=== PATIENT | male | born 2000 | race Caucasian/White ===

== ENCOUNTER 2019-11-05 16:09 | Inpatient (IN) | payer BC ==
[~2019-11-05] VITALS: Ht 182.9 cm; Wt 66.0 kg
[2019-11-05] MEDS ORDERED: LORAZEPAM 2MG/ML CPJ IM ONE (16:45)
[2019-11-05] MEDS ORDERED: DIPHENHYDRAMINE 50MG/ML VIAL IM ONE (17:15)
[2019-11-05 17:42] LABS: CHLORIDE 106 mEq/L (98-107)
[2019-11-05 17:46] LABS: ETHANOL BLOOD < 10 mg/dL
[2019-11-05 17:51] LABS: HEMATOCRIT. 46.8 % (42.0-52.0); HEMOGLOBIN. 15.9 g/dL (14.0-18.0); MEAN CORPUSCULAR HEMOGLOBIN 31.9 pg (28.0-32.0); MEAN CORPUSCULAR VOLUME 93.9 fL (80.0-94.0); MEAN PLATELET VOLUME 8.2 fl (7.4-10.4); PLATELET 401 x1000/uL (130-400); RED BLOOD CELL COUNT 4.99 mill/uL (4.7-6.1); RED CELL DISTRIBUTION WIDTH 12.2 % (11.6-14.6)
[2019-11-05] MEDS ORDERED: HALOPERIDOL LACTATE 5MG/ML VIAL IM STA (18:09)
[2019-11-05 18:41] LABS: CLARITY URINE CLEAR (CLEAR); COLOR URINE YELLOW (YELLOW); KETONES URINE 1+ (NEGATIVE); LEUKOCYTE ESTERASE URINE TRACE (NEGATIVE); NITRITE URINE NEGATIVE (NEGATIVE); OCCULT BLOOD URINE NEGATIVE (NEGATIVE); PH URINE 5.5 (4.5-8.0); PROTEIN URINE 1+ (NEGATIVE); SPECIFIC GRAVITY URINE 1.023 (1.005-1.030)
[2019-11-05 19:02] LABS: PLATELET ESTIMATE NORMAL
[2019-11-05 19:03] LABS: CANNABINOID URINE SCREEN PRESUMTIVE POSITIVE (NEGATIVE); METHADONE URINE SCREEN NEGATIVE (NEGATIVE); OPIATES URINE SCREEN NEGATIVE (NEGATIVE); PHENCYCLIDINE URINE SCREEN NEGATIVE (NEGATIVE)
[2019-11-05 19:04] LABS: *AMPHETAMINES SCREEN URINE NEGATIVE (NEGATIVE); *BARBITURATES SCREEN URINE PRESUMTIVE POSITIVE (NEGATIVE); *BENZODIAZEPINES SCREEN URINE PRESUMTIVE POSITIVE (NEGATIVE); *COCAINE SCREEN URINE NEGATIVE (NEGATIVE)
[2019-11-05] MEDS ORDERED: OLANZAPINE 10 MG/VIAL IM ONE ×2 (20:45→23:45)
[2019-11-05] MEDS ORDERED: HALOPERIDOL LACTATE 5MG/ML VIAL IM ONE (21:45)
[2019-11-06] MEDS ORDERED: HALOPERIDOL LACTATE 5MG/ML VIAL IM ONE ×2 (04:30→12:00)
[2019-11-06] MEDS ORDERED: OLANZAPINE 10 MG/VIAL IM STA (08:44)
[2019-11-06] MEDS ORDERED: LORAZEPAM 2MG/ML CPJ IM ONE ×2 (08:45→12:00)
[2019-11-06] MEDS ORDERED: LORAZEPAM 2MG/ML CPJ IV ONE ×2 (10:45→19:00)
[2019-11-06] MEDS ORDERED: LORAZEPAM 2MG/ML CPJ IM STA (11:12)
[2019-11-06] MEDS ORDERED: SODIUM CHLORIDE 0.9% 1,000 ML IV ONE ×3 (11:46→18:30)
[2019-11-06] MEDS ORDERED: DIPHENHYDRAMINE 50MG/ML VIAL IM ONE (12:00)
[2019-11-06 13:56] LABS: HEMATOCRIT. 49.4 % (42.0-52.0); HEMOGLOBIN. 16.9 g/dL (14.0-18.0); MEAN CORPUSCULAR HEMOGLOBIN 31.7 pg (28.0-32.0); MEAN PLATELET VOLUME 8.1 fl (7.4-10.4); PLATELET 389 x1000/uL (130-400); RED BLOOD CELL COUNT 5.32 mill/uL (4.7-6.1); RED CELL DISTRIBUTION WIDTH 12.6 % (11.6-14.6)
[2019-11-06 13:57] LABS: CHLORIDE 109 mEq/L (98-107)
[2019-11-06 14:22] LABS: PLATELET ESTIMATE NORMAL
[2019-11-06 15:07] LABS: CREATINE KINASE 32857 IU/L (39-308)
[2019-11-06] MEDS ORDERED: NITROGLYCERIN 0.4MG TABLET SL SL PRN (19:15)
[2019-11-06] MEDS ORDERED: GUAIFENESIN 200MG/10ML SUGAR FREE UDC PO PRN (19:15)
[2019-11-06] MEDS ORDERED: HALOPERIDOL LACTATE 5MG/ML VIAL IM PRN (19:15)
[2019-11-06] MEDS ORDERED: DIPHENHYDRAMINE 50MG/ML VIAL IV PRN (19:15)
[2019-11-06] MEDS ORDERED: IPRATROPIUM/ALBUTEROL 0.5-3(2.5)MG/3ML NEB ORI PRN (19:15)
[2019-11-06] MEDS ORDERED: CLONIDINE 0.1MG TABLET PO PRN (19:15)
[2019-11-06] MEDS ORDERED: MAGNESIUM/ALUMINUM HYDROXIDE/SIMETHICONE 30ML UDC PO PRN (19:15)
[2019-11-06] MEDS ORDERED: ONDANSETRON HCL 4MG/2ML INJ IV PRN (19:15)
[2019-11-06] MEDS ORDERED: DOCUSATE SODIUM 100MG CAPSULE PO PRN (19:15)
[2019-11-06] MEDS ORDERED: LORAZEPAM 2MG/ML CPJ IV PRN (19:15)
[2019-11-06] MEDS ORDERED: ACETAMINOPHEN 325MG TABLET PO PRN ×2 (19:15)
[2019-11-06] MEDS ORDERED: KETOROLAC 15MG/ML VIAL IV PRN (19:15)
[2019-11-07] MEDS ORDERED: NICOTINE 14MG PATCH TD ONE (04:30)
[2019-11-07 06:24] LABS: BASOPHILS % 0.3 % (0.0-2.0); HEMATOCRIT. 41.3 % (42.0-52.0); HEMOGLOBIN. 14.1 g/dL (14.0-18.0); LYMPHOCYTES % 7.7 % (20.0-50.0); MEAN CORPUSCULAR HEMOGLOBIN 31.9 pg (28.0-32.0); MEAN CORPUSCULAR VOLUME 93.5 fL (80.0-94.0); MEAN PLATELET VOLUME 7.9 fl (7.4-10.4); MONOCYTES % 9.5 % (2.0-8.0); NEUTROPHILS % 82.5 % (40.0-76.0); PLATELET 333 x1000/uL (130-400); RED BLOOD CELL COUNT 4.41 mill/uL (4.7-6.1); RED CELL DISTRIBUTION WIDTH 12.5 % (11.6-14.6)
[2019-11-07 06:25] LABS: CHLORIDE 111 mEq/L (98-107)
[2019-11-07 06:32] LABS: PHOSPHORUS 2.9 mg/dL (2.5-4.9)
[2019-11-07 07:25] LABS: CREATINE KINASE > 51000 IU/L (39-308)
[2019-11-07] MEDS ORDERED: SODIUM BICARBONATE 8.4% 1 MEQ/ML 50ML SYR IV ONE (07:45)
[2019-11-07] MEDS: OLANZAPINE 10MG TABLET PO SCH ×2 (08:17→09:40)
[2019-11-07] MEDS: FAMOTIDINE 20MG TABLET PO SCH (09:40)
[2019-11-07] MEDS: CITRIC ACID/SODIUM CITRATE SOLN 15ML UDC PO SCH ×3 (09:40→17:10)
[2019-11-07] MEDS: SODIUM CHLORIDE 0.9% 1,000 ML IV SCH (10:36)
[2019-11-07 11:30] VITALS: BP 148/73
[2019-11-07 12:47] VITALS: BP 148/73
[2019-11-07 16:00] VITALS: BP 136/79
[2019-11-07 20:00] VITALS: BP 132/59
[2019-11-08] MEDS: FAMOTIDINE 20MG TABLET PO SCH ×3 (00:35→21:02)
[2019-11-08] MEDS: OLANZAPINE 10MG TABLET PO SCH ×3 (00:36→21:02)
[2019-11-08 04:00] VITALS: BP 123/73
[2019-11-08] MEDS: CITRIC ACID/SODIUM CITRATE SOLN 15ML UDC PO SCH ×3 (09:03→17:37)
[2019-11-08 10:57] LABS: BASOPHILS % 0.7 % (0.0-2.0); EOSINOPHILS % 1.2 % (0.0-5.0); HEMATOCRIT. 40.5 % (42.0-52.0); HEMOGLOBIN. 13.8 g/dL (14.0-18.0); LYMPHOCYTES % 13.4 % (20.0-50.0); MEAN CORPUSCULAR HEMOGLOBIN 32.2 pg (28.0-32.0); MEAN CORPUSCULAR VOLUME 94.5 fL (80.0-94.0); MEAN PLATELET VOLUME 7.9 fl (7.4-10.4); MONOCYTES % 9.2 % (2.0-8.0); NEUTROPHILS % 75.5 % (40.0-76.0); PLATELET 255 x1000/uL (130-400); RED BLOOD CELL COUNT 4.29 mill/uL (4.7-6.1); RED CELL DISTRIBUTION WIDTH 12.3 % (11.6-14.6)
[2019-11-08 10:59] LABS: CHLORIDE 105 mEq/L (98-107)
[2019-11-08 11:10] LABS: PHOSPHORUS 2.2 mg/dL (2.5-4.9)
[2019-11-08] MEDS: SODIUM CHLORIDE 0.9% 1,000 ML IV SCH (16:30)
[2019-11-08 17:35] LABS: CREATINE KINASE 29873 IU/L (39-308)
[2019-11-08 20:00] VITALS: BP 106/86
[2019-11-09] VITALS: BP 121/67
[2019-11-09] MEDS: SODIUM CHLORIDE 0.9% 1,000 ML IV SCH ×3 (03:56→21:07)
[2019-11-09 04:00] VITALS: BP 116/56
[2019-11-09 08:00] VITALS: BP 113/51
[2019-11-09 08:54] LABS: CHLORIDE 107 mEq/L (98-107)
[2019-11-09] MEDS: CITRIC ACID/SODIUM CITRATE SOLN 15ML UDC PO SCH ×3 (10:04→17:55)
[2019-11-09] MEDS: FAMOTIDINE 20MG TABLET PO SCH ×2 (10:05→21:06)
[2019-11-09] MEDS: OLANZAPINE 10MG TABLET PO SCH ×2 (10:05→21:06)
[2019-11-09 12:14] LABS: CREATINE KINASE > 14000 IU/L (39-308)
[2019-11-09 16:00] VITALS: BP 114/57
[2019-11-09 20:00] VITALS: BP 120/65
[2019-11-09] MEDS: ZOLPIDEM TARTRATE 5MG TABLET PO PRN (21:06)
[2019-11-10] VITALS: BP 120/78
[2019-11-10 04:00] VITALS: BP 120/89
[2019-11-10 06:48] LABS: BASOPHILS % 0.9 % (0.0-2.0); EOSINOPHILS % 5.4 % (0.0-5.0); HEMATOCRIT. 38.7 % (42.0-52.0); HEMOGLOBIN. 13.6 g/dL (14.0-18.0); MEAN CORPUSCULAR HEMOGLOBIN 32.5 pg (28.0-32.0); MEAN PLATELET VOLUME 8.1 fl (7.4-10.4); MONOCYTES % 9.1 % (2.0-8.0); NEUTROPHILS % 55.6 % (40.0-76.0); PLATELET 274 x1000/uL (130-400); RED BLOOD CELL COUNT 4.17 mill/uL (4.7-6.1); RED CELL DISTRIBUTION WIDTH 11.7 % (11.6-14.6)
[2019-11-10 07:01] LABS: CHLORIDE 108 mEq/L (98-107)
[2019-11-10 07:04] LABS: PHOSPHORUS 3.5 mg/dL (2.5-4.9)
[2019-11-10 07:31] LABS: CREATINE KINASE 9435 IU/L (39-308)
[2019-11-10 08:00] VITALS: BP 110/65
[2019-11-10] MEDS: OLANZAPINE 10MG TABLET PO SCH (08:37)
[2019-11-10] MEDS: CITRIC ACID/SODIUM CITRATE SOLN 15ML UDC PO SCH ×3 (08:37→17:32)
[2019-11-10] MEDS: FAMOTIDINE 20MG TABLET PO SCH ×2 (08:37→21:00)
[2019-11-10] MEDS: SODIUM CHLORIDE 0.9% 1,000 ML IV SCH ×2 (08:38→17:33)
[2019-11-10 12:00] VITALS: BP 116/59
[2019-11-10 16:00] VITALS: BP 123/70
[2019-11-11] MEDS: ZOLPIDEM TARTRATE 5MG TABLET PO PRN ×2 (00:38→00:39)
[2019-11-11] MEDS: FAMOTIDINE 20MG TABLET PO SCH ×2 (00:42→00:51)
[2019-11-11] MEDS: SODIUM CHLORIDE 0.9% 1,000 ML IV SCH (04:30)
[2019-11-11 05:46] LABS: BASOPHILS % 0.8 % (0.0-2.0); HEMATOCRIT. 39.7 % (42.0-52.0); MEAN CORPUSCULAR HEMOGLOBIN 32.6 pg (28.0-32.0); MEAN CORPUSCULAR VOLUME 92.5 fL (80.0-94.0); MEAN PLATELET VOLUME 8.1 fl (7.4-10.4); NEUTROPHILS % 53.2 % (40.0-76.0); PLATELET 302 x1000/uL (130-400); RED BLOOD CELL COUNT 4.29 mill/uL (4.7-6.1); RED CELL DISTRIBUTION WIDTH 11.7 % (11.6-14.6)
[2019-11-11 05:55] LABS: CHLORIDE 106 mEq/L (98-107)
[2019-11-11 06:04] LABS: PHOSPHORUS 3.7 mg/dL (2.5-4.9)
[2019-11-11 06:34] LABS: CREATINE KINASE 4586 IU/L (39-308)
[2019-11-11] MEDS ORDERED: OLAN10TA19 PO (07:41)
[2019-11-11 07:52] VITALS: BP 115/76
[2019-11-11] MEDS ORDERED: OLANZAPINE 10MG TABLET PO SCH (09:00)
[2019-11-11] MEDS: CITRIC ACID/SODIUM CITRATE SOLN 15ML UDC PO SCH (09:26)
[2019-11-11 09:27] VITALS: BP 108/59
[2019-11-11 12:00] VITALS: BP 124/78
== END 2019-11-11 12:07 | disposition home or self-care (01) | DRG 557 ==
LOC: ER 16:09 → 6WST 11-06 18:54 → ENRESERV 11-07 10:22
PROVIDERS: ADMIT Internal Medicine; ATTEND Internal Medicine
DX: M62.82 Rhabdomyolysis (principal); G92 Toxic encephalopathy; F29 Unspecified psychosis not due to a substance or known physiological condition; E87.6 Hypokalemia; E83.52 Hypercalcemia; R74.0 Nonspecific elevation of levels of transaminase and lactic acid dehydrogenase [LDH]; Z79.899 Other long term (current) drug therapy
CPT/HCPCS: 36415; 71045; 80053; 80305; 80307; 80320; 80329; 81003; 82550; 83735; 84100; 85025; 93005; 96372; 99285; J1200; J1630; J2060; J3490; J7030; G0480